=== PATIENT | female | born 1955 | race Caucasian/White ===

== ENCOUNTER 2024-10-07 06:15 | Outpatient (CLI) | payer BC | END 2024-10-07 23:59 | disposition home or self-care (01) | LOC: MRI02 06:15 | PROVIDERS: ATTEND Family Medicine Sports Medicine | DX: M47.27 Other spondylosis with radiculopathy, lumbosacral region (principal); M48.07 Spinal stenosis, lumbosacral region; M54.50 Low back pain, unspecified; M77.9 Enthesopathy, unspecified | CPT/HCPCS: 72148 ==